=== PATIENT | female | born 1955 | race Caucasian/White ===

== ENCOUNTER 2018-01-24 07:59 | Emergency (ER) | payer OTHER ==
[2018-01-24] MEDS: KETOROLAC 30 MG/ML VIAL (J1885) IM (09:20)
== END 2018-01-24 09:33 | disposition home or self-care (01) ==
LOC: M ED 07:59
DX: M51.36 Other intervertebral disc degeneration, lumbar region (principal); M25.78 Osteophyte, vertebrae; I10 Essential (primary) hypertension; M54.9 Dorsalgia, unspecified; K21.9 Gastro-esophageal reflux disease without esophagitis; Z87.442 Personal history of urinary calculi; Z72.0 Tobacco use; Z79.899 Other long term (current) drug therapy; Z88.6 Allergy status to analgesic agent; Z88.5 Allergy status to narcotic agent
CPT/HCPCS: J1885

== ENCOUNTER → 2020-11-03 | Outpatient (CLI) | payer OTHER ==
[~2020-11-03] MED LIST: ASPI81TA83 OR; AVEL1TAB2 OR; BUSP5TA PO; CAND32TA9 PO; COLA100C2 OR; METO1TAB87 PO; NAPR-885 PO; NEUR100C OR; PANT40TA29 PO; PERC5TAB8 OR; PRED20TA OR; REST15CA OR; ROBA500T PO; SERT50TA2 OR; combivent; lopressor; maalox; omeprazole
[2020-11-03 18:01] LABS: ALBUMIN 3.7 GM/DL (3.2-5.2); ALT/SGPT 26 U/L (12-78); BILIRUBIN,TOTAL 0.2 MG/DL (0.2-1.0); BLOOD UREA NITROGEN 15 MG/DL (7-18); CALCIUM LEVEL 9.3 MG/DL (8.8-10.2); CARBON DIOXIDE LEVEL 25 MEQ/L (21-32); CHLORIDE LEVEL 107 MEQ/L (98-107); CHOLESTEROL LEVEL 164 MG/DL (<200); CHOLESTEROL RISK RATIO 4.205 (<5); CPK CREATINE PHOSPHOKINASE 89 U/L (26-192); CREATININE FOR GFR 0.98 MG/DL (0.55-1.30); GLOMERULAR FILTRATION RATE > 60.0 (>45); GLUCOSE, FASTING 123 MG/DL (70-100); HDL CHOLESTEROL 39 MG/DL (>40); LDL CHOLESTEROL 52 MG/DL (<100); NON-HDL-C 125 MG/DL; POTASSIUM SERUM 4.4 MEQ/L (3.5-5.1); SODIUM LEVEL 138 MEQ/L (136-145); TOTAL PROTEIN 7.9 GM/DL (6.4-8.2); TRIGLYCERIDES LEVEL 367 MG/DL (<150)
== END ==
LOC: M WUC 13:48
PROVIDERS: ATTEND Internal Medicine Cardiovascular Disease
DX: I11.9 Hypertensive heart disease without heart failure (principal); E78.5 Hyperlipidemia, unspecified

== ENCOUNTER → 2021-04-14 | Outpatient (CLI) | payer MEDICARE, OTHER ==
[~2021-04-14] MED LIST changes: +CAND32TA18 PO; -CAND32TA9 PO
== END ==
LOC: M PLAIMG 13:55
PROVIDERS: ATTEND Physician Assistant
DX: M51.16 Intervertebral disc disorders with radiculopathy, lumbar region (principal); G96.191 Perineural cyst

== ENCOUNTER → 2021-09-08 | Outpatient (CLI) | payer MEDICARE ==
[2021-09-08 11:44] LABS: PLATELET COUNT, AUTOMATED 233 10^3/uL (150-450)
[2021-09-08 11:57] LABS: INR 0.92; PROTHROMBIN TIME 12.7 SECONDS (12.7-14.5)
[2021-09-08 11:58] LABS: PARTIAL THROMBOPLASTIN TIME 26.3 SECONDS (25.9-37.0)
[2021-09-08 12:24] LABS: COLLAGEN EPINEPHRINE 105 SECONDS (74-162)
== END ==
LOC: M LAB 11:21
PROVIDERS: ATTEND Physician Assistant
DX: M51.16 Intervertebral disc disorders with radiculopathy, lumbar region (principal)

== ENCOUNTER → 2022-06-18 | Outpatient (CLI) | payer MEDICARE | LOC: M RAD 14:38 | PROVIDERS: ATTEND Physician Assistant | DX: S82.62XA Displaced fracture of lateral malleolus of left fibula, initial encounter for closed fracture (principal); Y92.89 Other specified places as the place of occurrence of the external cause; Y93.89 Activity, other specified; Y99.8 Other external cause status; M25.572 Pain in left ankle and joints of left foot; R22.42 Localized swelling, mass and lump, left lower limb ==

== ENCOUNTER → 2022-10-18 | Outpatient (CLI) | payer MEDICARE ==
[2022-10-18 15:53] LABS: PLATELET COUNT, AUTOMATED 246 10^3/uL (150-450)
[2022-10-18 16:06] LABS: INR 1.01
[2022-10-18 16:07] LABS: PARTIAL THROMBOPLASTIN TIME 27.6 SECONDS (24.8-34.2)
== END ==
LOC: M PLALAB 13:17
PROVIDERS: ATTEND Physician Assistant
DX: Z01.818 Encounter for other preprocedural examination (principal)

== ENCOUNTER 2023-04-21 09:03 | Day surgery (SDC) | payer OTHER, MEDICAID ==
[~2023-04-21] VITALS: Ht 157.5 cm; Wt 78.0 kg
[~2023-04-21 09:03] MED LIST changes: +AMLO1TAB24 PO; +ATOR40TA75 PO; +MIDAZOLAM INJ 2MG/2ML VIAL As Ordered ONE; +TRAM50TA2 PO; +fentaNYL 100 MCG/2 ML INJECTION As Ordered ONE
[2023-04-21] MEDS: OFLOXACIN 0.3 % (OCUFLOX) OPTH SOL 5ML OS ONE (09:31)
[2023-04-21] MEDS: ATROPINE SULFATE 1% OPHTH SOLN 2ML BTL OS SCH (09:32)
[2023-04-21] MEDS: TROPICAMIDE 1% OPHTH SOLN 15ML OS SCH (09:32)
[2023-04-21] MEDS: PHENYLEPHRINE 2.5% OPHTH SOL 2ML OS SCH (09:32)
[2023-04-21] MEDS: LIDOCAINE 3.5 % 1ML OPHTH TOPICAL GEL OU ONE (09:32)
[2023-04-21] MEDS: PHENYLEPHRINE 10% OPHTH SOL 5ML OS PRN (10:16)
[2023-04-21] MEDS: BSS IRRIG/VANCO(10MG)/TOBRA(5MG)/EPINEPH(1:1000-0.5CC)500ML BAG-ORONLY As Ordered ONE (10:42)
[2023-04-21] MEDS: LIDOCAINE 1% SDV 5ML VIAL As Ordered ONE (10:42)
[2023-04-21] MEDS: CEFUROXIME 1MG/0.1ML INTRACAMERAL INJ As Ordered ONE (10:42)
[2023-04-21 10:57] VITALS: BP 118/57; TEMP 97.3; O2SAT 97
== END 2023-04-21 11:17 | disposition home or self-care (01) ==
LOC: M SDC 09:03
PROVIDERS: ATTEND Ophthalmology
DX: H25.12 Age-related nuclear cataract, left eye (principal); I10 Essential (primary) hypertension; E78.00 Pure hypercholesterolemia, unspecified; Z79.899 Other long term (current) drug therapy; F17.210 Nicotine dependence, cigarettes, uncomplicated; K21.9 Gastro-esophageal reflux disease without esophagitis; Z88.8 Allergy status to other drugs, medicaments and biological substances
CPT/HCPCS: 66984; J0697; J2250; J3010; V2632

== ENCOUNTER 2023-04-28 09:30 | Day surgery (SDC) | payer OTHER, MEDICAID ==
[~2023-04-28] VITALS: Ht 157.5 cm; Wt 79.7 kg
[~2023-04-28 09:30] MED LIST changes: +BSS with VANC/TOB/EPI for EYE CASES IR ONE; +CYCLOPENTOLATE 1% OPHTH SOLN 2ML BTL OD SCH; +PHENYLEPHRINE 10% OPHTH SOL 5ML OD PRN; +TROPICAMIDE 1% OPHTH SOLN 15ML OD SCH
[2023-04-28] MEDS: LIDOCAINE 3.5 % 1ML OPHTH TOPICAL GEL OU ONE (10:32)
[2023-04-28] MEDS: PHENYLEPHRINE 2.5% OPHTH SOL 2ML OD SCH (10:33)
[2023-04-28] MEDS: OFLOXACIN 0.3 % (OCUFLOX) OPTH SOL 5ML OD ONE (10:33)
[2023-04-28] MEDS: ATROPINE SULFATE 1% OPHTH SOLN 2ML BTL OD SCH (10:34)
[2023-04-28] MEDS: VISCOAT 40-30MG/ML 0.5ML SYRINGE As Ordered ONE (11:42)
[2023-04-28] MEDS: CEFUROXIME 1MG/0.1ML INTRACAMERAL INJ As Ordered ONE (11:42)
[2023-04-28] MEDS: LIDOCAINE 1% SDV 5ML VIAL As Ordered ONE (11:42)
[2023-04-28] MEDS: BSS IRRIG/VANCO(10MG)/TOBRA(5MG)/EPINEPH(1:1000-0.5CC)500ML BAG-ORONLY As Ordered ONE (11:42)
[2023-04-28 12:00] VITALS: BP 103/54; TEMP 97.2; O2SAT 98
== END 2023-04-28 12:23 | disposition home or self-care (01) ==
LOC: M SDC 09:30
PROVIDERS: ATTEND Ophthalmology
DX: H25.11 Age-related nuclear cataract, right eye (principal); I10 Essential (primary) hypertension; E78.00 Pure hypercholesterolemia, unspecified; F17.210 Nicotine dependence, cigarettes, uncomplicated; Z79.899 Other long term (current) drug therapy; Z88.8 Allergy status to other drugs, medicaments and biological substances
CPT/HCPCS: 66984; A4649; J0697; J2250; J3010; V2632

== ENCOUNTER → 2023-06-23 | Outpatient (CLI) | payer OTHER, MEDICAID ==
[~2023-06-23] MED LIST changes: -BSS with VANC/TOB/EPI for EYE CASES IR ONE; -CYCLOPENTOLATE 1% OPHTH SOLN 2ML BTL OD SCH; -MIDAZOLAM INJ 2MG/2ML VIAL As Ordered ONE; -PHENYLEPHRINE 10% OPHTH SOL 5ML OD PRN; -TROPICAMIDE 1% OPHTH SOLN 15ML OD SCH; -fentaNYL 100 MCG/2 ML INJECTION As Ordered ONE
[2023-06-23 12:20] LABS: PLATELET COUNT, AUTOMATED 265 10^3/uL (150-450)
[2023-06-23 12:37] LABS: INR 1.04; PARTIAL THROMBOPLASTIN TIME 25.5 SECONDS (24.8-34.2); PROTHROMBIN TIME 13.3 SECONDS (12.5-14.5)
== END ==
LOC: M LAB 11:54
PROVIDERS: ATTEND Physician Assistant
DX: Z01.818 Encounter for other preprocedural examination (principal); M47.26 Other spondylosis with radiculopathy, lumbar region

== ENCOUNTER → 2024-03-01 | Outpatient (CLI) | payer MEDICAID, MEDICARE ==
[2024-03-01 13:39] LABS: PLATELET COUNT, AUTOMATED 251 10^3/uL (150-450)
[2024-03-01 13:56] LABS: INR 0.91; PARTIAL THROMBOPLASTIN TIME 27.6 SECONDS (24.8-34.2); PROTHROMBIN TIME 12.6 SECONDS (12.5-14.5)
== END ==
LOC: M LAB 11:43
PROVIDERS: ATTEND Physician Assistant
DX: Z01.818 Encounter for other preprocedural examination (principal)

== ENCOUNTER → 2024-10-17 | Outpatient (CLI) | payer MEDICARE, MEDICAID ==
[2024-10-17 15:22] LABS: INR 0.88
== END ==
LOC: M LAB 13:45
PROVIDERS: ATTEND Physician Assistant
DX: Z01.818 Encounter for other preprocedural examination (principal)